=== PATIENT | male | born 1990 | race Caucasian/White ===

== ENCOUNTER 2016-11-19 03:33 | Emergency (ER) | payer OTHER ==
[2016-11-19 03:42] VITALS: BP 127/66
[2016-11-19] MEDS ORDERED: ONDANSETRON ODT 4 MG TABLET TL STA (03:43)
[2016-11-19] MEDS ORDERED: DICYCLOMINE 10 MG CAPSULE PO STA (03:43)
--- NOTE | 2016-11-19 03:45 | ED Physician Documentation ---
PD HPI NVD - Stated complaint Stated Complaint: DIARRHEA,ABDOMINAL PAIN - Chief complaint Chief Complaint: Abd Pain - History obtained from History obtained from: Patient - History of Present Illness Timing - onset: How many hours ago (4) Timing - details: Gradual onset, Still present Associated symptoms: Abdominal pain, Loss of appetite. No: Chest pain, Hematemesis, Melena, Near syncope / syncope Contributing factors: No: Sick contact, Bad food, Travel Worsened by: Eating Similar symptoms before: No diagnosis Recently seen: Not recently seen - Additonal information Additional information: Patient is a 26 year old male with no significant past medical history who is presenting to the emergency department for diarrhea, nausea and abdominal cramping on the left side. patient stated that it started tonight. Patient denies any sick contacts, change in diet or recent travel. Review of Systems Constitutional: denies: Fever, Chills Eyes: denies: Decreased vision Ears: denies: Ear pain, Drainage/discharge Nose: denies: Rhinorrhea / runny nose, Congestion Throat: denies: Oral lesions / sores, Sore throat Cardiac: denies: Chest pain / pressure Respiratory: denies: Dyspnea, Cough GI: reports: Abdominal Pain, Nausea, Diarrhea. denies: Vomiting, Constipation : denies: Dysuria, Frequency Neurologic: denies: Generalized weakness, Focal weakness Immunocompromised: denies: Immunocompromised PD PAST MEDICAL HISTORY - Present Medications Home Medications: Ambulatory Orders Medication Instructions Recorded Confirmed Dicyclomine [Bentyl] 10 mg PO QID #15 capsule 11/19/16 Ondansetron Odt [Zofran] 4 mg TL Q6H PRN #14 tablet 11/19/16 - Allergies Allergies/Adverse Reactions: Allergies Allergy/AdvReac Type Severity Reaction Status Date / Time No Known Drug Allergies Allergy Verified 11/19/16 03:41 PD ED PE NORMAL - Vitals Vital signs reviewed: Yes (within normal limits) - General General: Alert and oriented X 3, No acute distress, Well developed/nourished - HEENT HEENT: Atraumatic, PERRL - Neck Neck: Supple, no meningeal sign - Cardiac Cardiac: RRR, No murmur - Respiratory Respiratory: No respiratory distress - Abdomen Abdomen: Soft - Derm Derm: Normal color, Warm and dry, No rash - Extremities Extremities: No deformity, No tenderness to palpate, No edema - Neuro Neuro: Alert and oriented X 3, 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 Patient had normal vital signs. Patient was treated with zofran and bentyl. Patient stated that he pretty much understood that it would pass but he needed a work note. Patient was able to tolerate PO without difficulty and was stable for discharge with outpatient follow up. Departure - Departure Disposition: 01 Home, Self Care Clinical Impression: Gastroenteritis Condition: Good Instructions: ED Gastroenteritis Viral Follow-Up: primary,care provider [Other] - Within 3 Days Prescriptions: Dicyclomine [Bentyl] 10 mg PO QID #15 capsule Ondansetron Odt [Zofran] 4 mg TL Q6H PRN #14 tablet PRN Reason: Nausea / Vomiting Comments: Your symptoms today are likely viral in nature and should be self limited. It is important that you stay well hydrated with gatorade or other electrolyte solution. You should take the zofran for nausea and bentyl or tylenol for abdominal pain. You should follow up with your pmd if your symptoms persist for more than 4-5 days. You can return to the emergency department at any time for new, worsening or uncontrollable symptoms. Forms: Activity restrictions
[2016-11-19] MEDS ORDERED: DICYCLOMINE 10 MG CAPSULE PO ONE (03:48)
[2016-11-19] MEDS ORDERED: ONDANSETRON ODT 4 MG TABLET ONE (03:48)
== END 2016-11-19 04:03 | disposition home or self-care (01) ==
LOC: ED 03:33
DX: K52.9 Noninfective gastroenteritis and colitis, unspecified (principal)
CPT/HCPCS: 99283; A9270; Q0162

== ENCOUNTER 2016-12-25 16:49 | Emergency (ER) | payer OTHER ==
--- NOTE | 2016-12-25 17:55 | XRAY Preliminary Report ---
Exam: XR Ankle 3 View LT IMPRESSION: 1. No fracture or bony malalignment. 2. Possible small joint effusion. [facility] SITE ID: [id number]
--- NOTE | 2016-12-25 17:56 | XRAY Preliminary Report ---
Exam: XR Foot 3 View LT IMPRESSION: 1. No fracture or bony malalignment. [facility] SITE ID: [id number]
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
[2016-12-25 18:34] VITALS: BP 131/78
== END 2016-12-25 18:34 | disposition home or self-care (01) ==
LOC: ED 16:49
DX: S90.32XA Contusion of left foot, initial encounter (principal); V28.0XXA Motorcycle driver injured in noncollision transport accident in nontraffic accident, initial encounter
CPT/HCPCS: 29515; 99282

== ENCOUNTER 2020-11-27 18:14 | Emergency (ER) | payer OTHER ==
[2020-11-27] MEDS ORDERED: SODIUM CHLORIDE 0.9% 1,000 ML IV STA (18:44)
[2020-11-27] MEDS ORDERED: ONDANSETRON 4 MG/2 ML VIAL IVP STA (18:44)
[2020-11-27 18:55] LABS: BASOPHILS % (AUTO) 0.3 %; EOSINOPHILS # (AUTO) 0.1 10^3/uL (0.0-0.7); EOSINOPHILS % (AUTO) 0.7 %; HGB - HEMOGLOBIN 14.5 g/dL (14.0-18.0); LYMPHOCYTES # (AUTO) 1.6 10^3/uL (1.5-3.5); LYMPHOCYTES % (AUTO) 15.3 %; MEAN CORPUSCULAR HEMOGLOBIN 30.9 pg (27.0-31.0); MEAN CORPUSCULAR HGB CONC 34.5 g/dL (32.0-36.0); MEAN CORPUSCULAR VOLUME 89.6 fL (80.0-94.0); MEAN PLATELET VOLUME 10.2 fL (7.4-11.4); MONOCYTES # (AUTO) 0.9 10^3/uL (0.0-1.0); MONOCYTES % (AUTO) 8.6 %; NEUTROPHILS % (AUTO) 74.8 %; PLT - PLATELET COUNT 239 10^3/uL (130-450); RED BLOOD COUNT 4.69 10^6/uL (4.70-6.10); RED CELL DISTRIBUTION WIDTH 11.9 % (12.0-15.0); WHITE BLOOD COUNT 10.7 x10^3/uL (4.8-10.8)
[2020-11-27 19:08] LABS: ALBUMIN 4.4 g/dL (3.2-5.5); ALBUMIN/GLOBULIN RATIO 1.8 (1.0-2.2); BILIRUBIN,TOTAL 0.7 mg/dL (0.2-1.0); CALCIUM 8.9 mg/dL (8.5-10.3); POTASSIUM 3.9 mmol/L (3.5-5.0); TOTAL PROTEIN 6.8 g/dL (6.7-8.2)
--- NOTE | 2020-11-27 20:03 | ED Physician Documentation ---
PD HPI ABD PAIN - Stated complaint Stated Complaint: ABD PX - Chief complaint Chief Complaint: Abd Pain - History obtained from History obtained from: Patient - History of Present Illness Timing - onset: Today Timing - duration: Days (1) Timing - details: Abrupt onset Pain level max: 8 Pain level now: 3 Quality: Aching, Pain Associated symptoms: Nausea. No: Fever, Vomiting, Hematemesis, Diarrhea, Constipation, Melena, Hematochezia, Dysuria - Additional information Additional information: 30-year-old male with left lower quadrant abdominal pain today. He states that this occurs about every 3 to 6 months. He describes it as a cramping, mainly periumbilical occasionally left lower quadrant. Has had his appendix removed. States the pain is improving now. Has had nausea but no vomiting. Nothing seems to make it better or worse. No diarrhea or constipation. No family history of inflammatory bowel disease. Has never seen a burner shaft. Review of Systems Constitutional: denies: Fever, Chills GI: denies: Vomiting Skin: denies: Rash Musculoskeletal: denies: Neck pain, Back pain Neurologic: denies: Headache PD PAST MEDICAL HISTORY - Past Medical History Past Medical History: No - Past Surgical History Past Surgical History: Yes General: Appendectomy HEENT: Tonsil/Adenoidectomy - Present Medications Home Medications: Ambulatory Orders Medication Instructions Recorded Confirmed No Known Home Medications 12/25/16 12/25/16 - Allergies Allergies/Adverse Reactions: Allergies Allergy/AdvReac Type Severity Reaction Status Date / Time No Known Drug Allergies Allergy Verified 11/27/20 18:29 - Social History Does the pt smoke?: No Smoking Status: Never smoker Does the pt drink ETOH?: Yes Does the pt have substance abuse?: No - Immunizations Immunizations are current?: Yes - POLST Patient has POLST: No PD ED PE NORMAL - Vitals Vital signs reviewed: Yes - General General: Alert and oriented X 3, No acute distress - HEENT HEENT: Moist mucous membranes - Neck Neck: Supple, no meningeal sign - Cardiac Cardiac: RRR, Strong equal pulses - Respiratory Respiratory: No respiratory distress, Clear bilaterally - Abdomen Abdomen: Soft, Non tender, Non distended - Derm Derm: Warm and dry - Neuro Neuro: Alert and oriented X 3 - Psych Psych: Normal mood, Normal affect Results - Vitals Vitals: Vital Signs - 24 hr 11/27/20 11/27/20 11/27/20 18:27 19:20 19:42 Temperature 36.4 C L Heart Rate 68 65 Respiratory 15 15 15 Rate Blood Pressure 119/70 107/68 O2 Saturation 99 100 11/27/20 11/27/20 11/27/20 20:18 21:48 22:00 Temperature 36.8 C Heart Rate 72 70 Respiratory 15 15 Rate Blood Pressure 121/75 119/60 O2 Saturation 99 100 Oxygen O2 Source Room air - Labs Labs: Laboratory Tests 11/27/20 11/27/20 11/27/20 18:42 18:42 20:17 WBC 10.7 RBC 4.69 L Hgb 14.5 Hct 42.0 MCV 89.6 MCH 30.9 MCHC 34.5 RDW 11.9 L Plt Count 239 MPV 10.2 Neut # (Auto) 8.0 H Lymph # (Auto) 1.6 [place] # (Auto) 0.9 Eos # (Auto) 0.1 Baso # (Auto) 0.0 Absolute Nucleated RBC 0.00 Nucleated RBC % 0.0 Sodium 141 Potassium 3.9 Chloride 104 Carbon Dioxide 27 Anion Gap 10.0 BUN 12 Creatinine 1.0 Estimated GFR (MDRD) 88 L Glucose 107 H Calcium 8.9 Total Bilirubin 0.7 AST 18 ALT 26 Alkaline Phosphatase 40 L Total Protein 6.8 Albumin 4.4 Globulin 2.4 Albumin/Globulin Ratio 1.8 Lipase 40 Urine Color YELLOW Urine Clarity CLEAR Urine pH 6.0 Ur Specific [place] 1.020 Urine Protein NEGATIVE Urine Glucose (UA) NEGATIVE Urine Ketones NEGATIVE Urine Occult Blood NEGATIVE Urine Nitrite NEGATIVE Urine Bilirubin NEGATIVE Urine Urobilinogen 0.2 (NORMAL) Ur Leukocyte Esterase NEGATIVE Ur Microscopic Review NOT INDICATED Urine Culture Comments NOT INDICATED - Rads (name of study) CT abd/pelvis Radiology: Final report received, EMP read contemporaneously, See rad report PD MEDICAL DECISION MAKING - ED course Complexity details: reviewed results, re-evaluated patient, considered differential, d/w patient ED course: 30-year-old male with abdominal pain. Unclear etiology. Possible inflammatory bowel disease given its ongoing nature for several years and repeating several times per year. Recommend that he follow-up closely with his doctor for referral to gastroenterology. Patient is well-appearing, nontoxic. Afebrile. Asymptomatic currently. Patient counseled regarding signs and symptoms for which I believe and urgent re-evaluation would be necessary. Patient with good understanding of and agreement to plan and is comfortable going home at this time This document was made in part using voice recognition software. While efforts are made to proofread this document, sound alike and grammatical errors may occur. IMPRESSION: 1. Findings suggestive of mild colitis and/or colonic spasm, most pronounced in the transverse and proximal descending colon. Etiology is likely infectious or possibly inflammatory. 2. There is moderate amount of solid stool in the sigmoid colon and rectum. 3. Surgically absent appendix. Departure - Departure Disposition: 01 Home, Self Care Clinical Impression: Colitis Condition: Good Instructions: ED Colitis Ulcerative Follow-Up: Your,doctor in 1 week [Other] Comments: The cause of your symptoms is unclear, but could be due to conditions such as ulcerative colitis. Please follow-up with your doctor for further care. They may want to refer you to a burner shaft for further work-up and evaluation. Return if you worsen CT scan findings IMPRESSION: 1. Findings suggestive of mild colitis and/or colonic spasm, most pronounced in the transverse and proximal descending colon. Etiology is likely infectious or possibly inflammatory. 2. There is moderate amount of solid stool in the sigmoid colon and rectum. 3. Surgically absent appendix. Discharge Date/Time: 11/27/20 22:00
[2020-11-27 20:27] LABS: BILIRUBIN,URINE NEGATIVE (NEGATIVE); GLUCOSE, URINE (UA) NEGATIVE (NEGATIVE); KETONES,URINE (UA) NEGATIVE (NEGATIVE); LEUKOCYTE ESTERASE, URINE NEGATIVE (NEGATIVE); NITRITE,URINE NEGATIVE (NEGATIVE); OCCULT BLOOD,URINE NEGATIVE (NEGATIVE); PROTEIN,URINE NEGATIVE (NEGATIVE); UROBILINOGEN,URINE 0.2 (NORMAL) E.U./dL (NORMAL)
[2020-11-27 20:28] LABS: CLARITY,URINE CLEAR (CLEAR)
[2020-11-27] MEDS ORDERED: IOPAMIDOL-300 100 ML VIAL ONE (20:39)
[2020-11-27] MEDS ORDERED: IOPAMIDOL-300 100 ML VIAL IVP ONE (21:01)
--- NOTE | 2020-11-27 21:33 | CT Report ---
PROCEDURE: Abdomen/Pelvis W INDICATIONS: LLQ abd pain CONTRAST: IV CONTRAST: Isovue 300 ml: 100 PO CONTRAST: *NO PO CONTRAST TECHNIQUE: After the administration of IV contrast, 5 mm thick sections acquired from the diaphragms to the symp hysis. 5 mm thick coronal and sagittal reformats were acquired. For radiation dose reduction, the f ollowing was used: automated exposure control, adjustment of mA and/or kV according to patient size. COMPARISON: None. FINDINGS: Image quality: Excellent. ABDOMEN: Lung bases: Lung bases are clear. Heart size is normal. Solid organs: Liver and spleen are normal in size and enhancement. Gallbladder is unremarkable Carlos iary system is non dilated. Pancreas enhances normally. No adrenal nodules. Kidneys demonstrate no rmal size and enhancement, without hydronephrosis. Peritoneum and bowel: There is spasm, mild circumferential wall thickening and mucosal edema from th e hepatic through the splenic flexure into the proximal descending colon. No diverticula or significa nt surrounding inflammation or fluid. The left lower quadrant there is a moderate solid stool burden. The appendix is surgically absent. Small bowel is decompressed. The stomach is unremarkable. Nodes and vessels: No retroperitoneal or mesenteric adenopathy by size criteria. Aorta and inferior vena cava are normal in size. Miscellaneous: No ventral hernias. PELVIS: Genitourinary: Bladder wall thickness is normal. Miscellaneous: No inguinal hernias or adenopathy. Bones: No suspicious bony lesions. No vertebral body compression fractures. IMPRESSION: 1. Findings suggestive of mild colitis and/or colonic spasm, most pronounced in the transverse and pr oximal descending colon. Etiology is likely infectious or possibly inflammatory. 2. There is moderate amount of solid stool in the sigmoid colon and rectum. 3. Surgically absent appendix. Reviewed by: Kadi Pond MD on 11/27/2020 9:31 PM PDT Approved by: Kadi Pond MD on 11/27/2020 9:31 PM PDT Station ID: [id number]
[2020-11-27 21:50] VITALS: BP 119/60
== END 2020-11-27 22:00 | disposition home or self-care (01) ==
LOC: ED 18:14
DX: K52.9 Noninfective gastroenteritis and colitis, unspecified (principal)
CPT/HCPCS: 36415; 74177; 80053; 81003; 83690; 85025; 96361; 96374; 99284; Q9967; 81001; 87086

== ENCOUNTER 2022-02-14 08:00 | Outpatient (CLI) | payer OTHER ==
--- NOTE | 2022-02-14 16:01 | XRAY Report ---
PROCEDURE: Chest 2 View X-Ray INDICATIONS: COUGH TECHNIQUE: PA and lateral view of the chest. COMPARISON: None. FINDINGS: PA and lateral view of the chest show no focal consolidation or mass. No pneumothorax or pleural effu pippa. Heart size is normal. There is S-shaped curvature of the thoracolumbar spine. IMPRESSION: No acute cardiopulmonary abnormality. Reviewed by: Darrell Deluna on 02/14/2022 4:00 PM PDT Approved by: Darrell Deluna on 02/14/2022 4:00 PM PDT Station ID: [id number]
== END 2022-02-14 23:59 | disposition home or self-care (01) ==
LOC: DI.N 08:00
PROVIDERS: ATTEND Family Medicine
DX: R05.8 Other specified cough (principal); R05.9 Cough, unspecified